=== PATIENT | male | born 1940 | race Caucasian/White ===

== ENCOUNTER 2020-08-13 12:03 | Outpatient (REF) | payer MEDICARE, OTHER, SELFPAY ==
[2020-08-13 12:44] LABS: HCT 43.9 % (40.0-50.0); MCH 32.4 pg (27.0-33.0); MCHC 34.2 % (32.0-36.0); MCV 94.8 fL (80-95); MPV 9.3 fL (8.0-11.0); Platelet Count 203 10^3/uL (130-400); RBC 4.63 10^6/uL (4.36-5.78); RDW 12.9 % (11.8-14.1); RDW-SD 44.8 fL
[2020-08-13 14:19] LABS: ALT 30 U/L (16-63); AST 15 U/L (15-37); Albumin 3.9 g/dL (3.4-5.0); Alkaline Phosphatase 54 U/L (46-116); Anion Gap 8.2 mmol/L (3-11); BUN 18 mg/dL (7-18); Bilirubin, Total 0.8 mg/dL (0.2-1.0); CO2 29.8 mmol/L (21.0-32.0); CREATININE 1.2 mg/dL (0.70-1.30); Chloride 105 mmol/L (98-107); Estimated GFR 57.96 (mL/min/1.73m2); Glucose 83 mg/dL (74-106); Potassium 4.9 mmol/L (3.5-5.1); Sodium 143 mmol/L (136-145); Total Protein 6.8 g/dL (6.4-8.2)
== END 2020-08-13 12:04 | disposition home or self-care (01) ==
LOC: NCHCN 12:03
PROVIDERS: PCP Family Medicine; Visit Provider Family Medicine
DX: K21.9 Gastro-esophageal reflux disease without esophagitis (principal)
CPT/HCPCS: 80053; 85027

== ENCOUNTER 2020-11-07 16:57 | Outpatient (REF) | payer MEDICARE, OTHER, SELFPAY ==
[2020-11-08 03:05] LABS: COVID-19 RT-PCR UVMMC Result Negative (Negative)
== END 2020-11-07 16:58 | disposition home or self-care (01) ==
LOC: NCHCN 16:57
PROVIDERS: PCP Family Medicine; Visit Provider Family Medicine
DX: Z20.822 Contact with and (suspected) exposure to COVID-19 (principal); J02.9 Acute pharyngitis, unspecified
CPT/HCPCS: U0003; U0005

== ENCOUNTER 2020-11-21 14:39 | Outpatient (CLI) | payer MEDICARE, OTHER, SELFPAY ==
--- NOTE | 2020-11-21 | DI.RAD_ITS ---
Exam(s) XR CHEST 2V PA LATERAL EXAM: XR CHEST 2V PA LATERAL CLINICAL HISTORY: BRONCHITIS ACUTE J20.9 TECHNIQUE: 2D digital imaging was performed. COMPARISON: No exams were available for comparison FINDINGS: MEDIASTINUM: Normal. HEART: Normal. PULMONARY VASCULATURE: Normal. LUNGS: There is an opacity in the peripheral aspect of the right mid lung. PLEURAL SPACE: No pleural effusion or pneumothorax. BONE:Within normal limits for the patient's age. OTHER FINDINGS:Normal. IMPRESSION: Opacity in the right mid lung peripherally. This may represent atelectasis or pneumonia. A follow-u p chest x-ray is recommended to document resolution of the infiltrate. DATA REPOSITORY: RADIATION DOSE DELIVERED:
== END 2020-11-21 14:59 ==
PROVIDERS: PCP Family Medicine; Visit Provider Family Medicine
DX: J20.9 Acute bronchitis, unspecified (principal); R91.8 Other nonspecific abnormal finding of lung field
CPT/HCPCS: 71046

== ENCOUNTER 2020-12-04 15:10 | Outpatient (REF) | payer MEDICARE, OTHER, SELFPAY ==
[2020-12-05 14:15] LABS: COVID-19 RT-PCR UVMMC Result Negative (Negative)
== END 2020-12-04 15:11 | disposition home or self-care (01) ==
LOC: NCHCN 15:10
PROVIDERS: PCP Family Medicine; Visit Provider Family Medicine
DX: Z20.822 Contact with and (suspected) exposure to COVID-19 (principal)
CPT/HCPCS: U0003; U0005

== ENCOUNTER 2021-01-01 01:03 | Outpatient (CLI) | payer MEDICARE, OTHER, SELFPAY ==
--- NOTE | 2021-01-01 | DI.RAD_ITS ---
Exam(s) XR CHEST 2V PA LATERAL EXAM: XR CHEST 2V PA LATERAL CLINICAL HISTORY: COMMUNITY ACQUIRED PNEUMONIA,J18.9. TECHNIQUE: 2D digital imaging was performed. COMPARISON: CR XR CHEST 2V PA LATERAL from 11/21/2020 FINDINGS: Heart size is normal. The mediastinum is not widened. Left lung remains clear. Previously described infiltrate peripherally in the right lung has almost completely resolved. There are no pleural effusions. No pneumothorax. IMPRESSION: Radiographic improvement in the right lung infiltrate seen on 11/21/2020 chest x-ray. No pleural eff usions. Recommend repeat chest x-ray in 3 months. DATA REPOSITORY: RADIATION DOSE DELIVERED:
== END 2021-01-01 01:23 ==
PROVIDERS: PCP Family Medicine; Visit Provider Family Medicine
DX: J18.9 Pneumonia, unspecified organism (principal)
CPT/HCPCS: 71046

== ENCOUNTER 2021-04-05 02:50 | Outpatient (CLI) | payer MEDICARE, OTHER, SELFPAY ==
--- NOTE | 2021-04-05 09:07 | DI.RAD_ITS ---
Exam(s) XR CHEST 2V PA LATERAL EXAM: XR CHEST 2V PA LATERAL CLINICAL HISTORY: 3 MONTH F/U COMMUNITY ACQUIRED PNEUMONIA,J18.9. TECHNIQUE: 2D digital imaging was performed. COMPARISON: CR XR CHEST 2V PA LATERAL from 11/21/2020 CR XR CHEST 2V PA LATERAL from 01/01/2021 FINDINGS: Heart size is normal. The mediastinum is not widened. Lungs are clear. No infiltrates nor pleural effusions. There has been no recurrence of the infiltrate which was evident in the right lung on 11/21/2020 IMPRESSION: No acute pulmonary findings. DATA REPOSITORY: RADIATION DOSE DELIVERED:
== END 2021-04-05 03:10 ==
PROVIDERS: PCP Family Medicine; Visit Provider Family Medicine
DX: J18.9 Pneumonia, unspecified organism (principal)
CPT/HCPCS: 71046

== ENCOUNTER 2021-08-12 13:29 | Outpatient (REF) | payer MEDICARE, OTHER, SELFPAY ==
[2021-08-12 14:53] LABS: Bilirubin Negative (Negative); Blood Small (Negative); Clarity Cloudy (Clear); Glucose Negative (Negative); Ketones Negative (Negative); Leukocyte Esterase Moderate (Negative); Nitrite Negative (Negative); Urobilinogen 0.2 EU/dL (Up TO 0.2)
[2021-08-12 15:03] LABS: Bacteria Few HPF (Negative); C & S Indicated? C&S Done As Ordered; Casts 0-2 Hyaline LPF (Negative); Crystals Negative HPF (Negative); Epithelial Cells Rare HPF (Negative); Mucus Trace (Negative); RBC 0-2 HPF (0-2); WBC >50 HPF (0-5)
== END 2021-08-12 13:30 | disposition home or self-care (01) ==
LOC: NCHCN 13:29
PROVIDERS: PCP Family Medicine; Visit Provider Family Medicine
DX: N39.0 Urinary tract infection, site not specified (principal)
CPT/HCPCS: 87077; 81003; 81015; 87086; 87186

== ENCOUNTER 2021-09-11 18:01 | Outpatient (REF) | payer MEDICARE, OTHER, SELFPAY ==
[2021-09-11 20:43] LABS: HCT 42.3 % (40.0-50.0); HGB 14.6 g/dL (13.5-17.5); MCH 32.8 pg (27.0-33.0); MCHC 34.5 % (32.0-36.0); MCV 95 fL (80-95); MPV 9.4 fL (8.0-11.0); Platelet Count 214 10^3/uL (130-400); RBC 4.45 10^6/uL (4.36-5.78); RDW 12.7 % (11.8-14.1); WBC 6.02 10^3/uL (4.4-10.8)
[2021-09-11 21:01] LABS: Anion Gap 7.8 mmol/L (3-11); BUN 17 mg/dL (7-18); CO2 29.2 mmol/L (21.0-32.0); Calcium 9.3 mg/dL (8.5-10.1); Chloride 100 mmol/L (98-107); Glucose 87 mg/dL (74-106); Potassium 4.3 mmol/L (3.5-5.1); Sodium 137 mmol/L (136-145)
== END 2021-09-11 18:02 | disposition home or self-care (01) ==
LOC: NCHCN 18:01
PROVIDERS: PCP Family Medicine; Visit Provider Family Medicine
DX: K21.9 Gastro-esophageal reflux disease without esophagitis (principal)
CPT/HCPCS: 80048; 85027

== ENCOUNTER 2022-04-23 12:03 | Outpatient (REF) | payer MEDICARE, OTHER, SELFPAY ==
--- NOTE | 2022-04-23 15:45 | SKI_PTH ---
PATIENT: Bowen Munguia LOC: [facility] U#:[id number] AGE/SX: 81/M ROOM: RE04/23/[address]: Ryan Rivera : 1940 BED: DIS: 04/23/2022 SPEC #: [id number] RECD: 04/24/22 12:18 STATUS: MITCHELL ORNELAS #: [id number] LAWRENCE: 04/23/22 15:[address]: Ryan Rivera DEPT: Surgical Specimen RECD BY: Brigitte Schuster Tissues: 1 - SKIN BIOPSY(SHAVE/PUNCH) Procedures: SKIN LEVEL 4 Comments: [id number]
== END 2022-04-23 12:04 | disposition home or self-care (01) ==
LOC: NCHCN 12:03
PROVIDERS: PCP Family Medicine; Visit Provider Family Medicine
DX: L85.9 Epidermal thickening, unspecified (principal)
CPT/HCPCS: 88305

== ENCOUNTER 2022-08-27 12:31 | Outpatient (REF) | payer MEDICARE, OTHER, SELFPAY ==
[2022-08-27 15:06] LABS: HCT 41.9 % (40.0-50.0); HGB 14.2 g/dL (13.5-17.5); MCH 32.5 pg (27.0-33.0); MCHC 33.9 % (32.0-36.0); MCV 96 fL (80-95); MPV 9.4 fL (8.0-11.0); Platelet Count 212 10^3/uL (130-400); RBC 4.37 10^6/uL (4.36-5.78); RDW 12.9 % (11.8-14.1); RDW-SD 45.9 fL; WBC 5.23 10^3/uL (4.4-10.8)
[2022-08-27 15:28] LABS: ALT 27 U/L (16-63); AST 22 U/L (15-37); Albumin 3.8 g/dL (3.4-5.0); Alkaline Phosphatase 54 U/L (46-116); Anion Gap 4.4 mmol/L (3-11); BUN 22 mg/dL (7-18); Bilirubin, Total 0.8 mg/dL (0.2-1.0); CO2 31.6 mmol/L (21.0-32.0); CREATININE 1.2 mg/dL (0.70-1.30); Calcium 9.2 mg/dL (8.5-10.1); Chloride 105 mmol/L (98-107); Estimated GFR 59.63 (mL/min/1.73m2); Glucose 85 mg/dL (74-106); Potassium 4.1 mmol/L (3.5-5.1); Sodium 141 mmol/L (136-145); Total Protein 7.1 g/dL (6.4-8.2)
== END 2022-08-27 12:32 | disposition home or self-care (01) ==
LOC: NCHCN 12:31
PROVIDERS: PCP Family Medicine; Visit Provider Family Medicine
DX: K21.9 Gastro-esophageal reflux disease without esophagitis (principal); G57.02 Lesion of sciatic nerve, left lower limb; C44.320 Squamous cell carcinoma of skin of unspecified parts of face
CPT/HCPCS: 80053; 85027

== ENCOUNTER 2022-12-24 12:27 | Outpatient (REF) | payer MEDICARE, OTHER, SELFPAY ==
[2022-12-24 15:35] LABS: Abs Immature Grans 0.01 10^3/uL (0.0-0.06); Absolute Basophil Count 0.05 10^3/uL (0.0-0.2); Absolute Eosinophil Count 0.14 10^3/uL (0.0-0.7); Absolute Lymphocyte Count 1.56 10^3/uL (1.2-3.4); Absolute Monocyte Count 0.53 10^3/uL (0.1-0.8); Absolute Neutrophil Count 2.79 10^3/uL (1.2-6.7); Eosinophils % 2.8; HGB 13.8 g/dL (13.5-17.5); Immature Grans % 0.2; Lymphocytes % 30.7; MCH 32.9 pg (27.0-33.0); MCHC 34.5 % (32.0-36.0); MCV 96 fL (80-95); MPV 9.3 fL (8.0-11.0); Monocytes % 10.4; Neutrophils % 54.9; Platelet Count 216 10^3/uL (130-400); RBC 4.19 10^6/uL (4.36-5.78); RDW 12.5 % (11.8-14.1); RDW-SD 43.2 fL; WBC 5.08 10^3/uL (4.4-10.8)
[2022-12-24 16:05] LABS: ALT 28 U/L (16-63); AST 19 U/L (15-37); Albumin 3.7 g/dL (3.4-5.0); Alkaline Phosphatase 63 U/L (46-116); Anion Gap 4.9 mmol/L (3-11); BUN 24 mg/dL (7-18); Bilirubin, Total 0.6 mg/dL (0.2-1.0); C-Reactive Protein 0.25 mg/dL (0.0-0.3); CO2 31.1 mmol/L (21.0-32.0); CREATININE 1.1 mg/dL (0.70-1.30); Calcium 9.3 mg/dL (8.5-10.1); Chloride 106 mmol/L (98-107); Estimated GFR 66.19 (mL/min/1.73m2); Glucose 79 mg/dL (74-106); Potassium 4.2 mmol/L (3.5-5.1); Sodium 142 mmol/L (136-145); TSH (W/Ref FT4) 1.36 uIU/mL (0.36-3.74); Total Protein 6.6 g/dL (6.4-8.2)
== END 2022-12-24 12:28 | disposition home or self-care (01) ==
LOC: NCHCN 12:27
PROVIDERS: PCP Family Medicine; Visit Provider Family Medicine
DX: U09.9 Post COVID-19 condition, unspecified (principal); R53.83 Other fatigue
CPT/HCPCS: 80053; 84443; 85025; 86140

== ENCOUNTER 2023-01-21 14:17 | Outpatient (CLI) | payer MEDICARE, OTHER, SELFPAY ==
--- NOTE | 2023-01-21 13:00 | DI.RAD_ITS ---
Exam(s) XR SHOULDER LT COMPLETE 2+V EXAM: XR SHOULDER LT COMPLETE 2+V CLINICAL HISTORY: LEFT SHOULDER PAIN. TECHNIQUE: 2D digital imaging was performed. Three views. COMPARISON: CR XR CHEST 2V PA LATERAL from 04/05/2021 FINDINGS: BONES: No acute fracture is present. No bony destructive lesion is seen. Spurring at the lesser tube rosity. JOINTS: No dislocation present. Minimal spurring at the glenoid. Glenohumeral joint space is mainta ined. Minimal spurring at the AC joint. SOFT TISSUE: Normal. IMPRESSION: mild degenerative changes. DATA REPOSITORY: RADIATION DOSE DELIVERED:
== END 2023-01-21 14:18 | disposition home or self-care (01) ==
LOC: DIORS 14:17
PROVIDERS: PCP Family Medicine; Referring Provider Family Medicine; Visit Provider Student in an Organized Health Care Education/Training Program
DX: M25.512 Pain in left shoulder (principal); M75.102 Unspecified rotator cuff tear or rupture of left shoulder, not specified as traumatic
CPT/HCPCS: 20610; 99203; 73030; J1030

== ENCOUNTER 2023-03-25 20:58 | Outpatient (REF) | payer MEDICARE, OTHER, SELFPAY ==
--- OUTSIDE RECORDS SUMMARY | 2023-03-25 21:02 | XMS_ITS | Continuity of Care Document ---
Author Name Unknown Organization [facility] Ambulatory Clinics Address [address] [place] [address] Encounter [facility] NBR [id number] Date(s): 10/28/22 - 10/28/22 [facility] Ambulatory Clinics [address] [place], [place] [address] [[email or web address] Discharge Disposition: Home Assessment and Plan Future Appointments Patient Care team information Care Team Related Persons Name: SPENCER DOYLE Address: Home [address] [place] [address] [facility] Address: Mailing [address] [place], [place] [id number]
--- OUTSIDE RECORDS SUMMARY | 2023-03-25 21:02 | XMS_ITS | Continuity of Care Document ---
Author Name Unknown Organization [facility] Ambulatory Clinics Address [address] [place] [address] Care Team Providers Care Inspector Open Die Name Role Phone Unavailable, Physician Primary Care Physician Un available Encounter [facility] NBR [id number] Date(s): 11/07/22 - 11/07/22 [facility] Ambulatory Clinics [address] [place], [place] [address] Encounter Diagnosis Neoplasm of skin(Discharge Diagnosis) - 11/06/22 Skin lesion(Discharge Diagnosis) - 11/06/22 AK (actinic keratosis)(Discharge Diagnosis) - 11/07/22 Discharge Disposition: Home or Self Care Attending Physician: Rakesh Cai DO Referring Physician: Rakesh Cai DO Allergies, Adverse Reactions, Alerts No Known Medication Allergies Assessment and Plan Future Appointments Medications betamethasone 0 Refill(s) Start Date: 11/07/22 Status: Ordered Efudex 5% topical cream 1 kaitlynn, Topical, BID, # 40 g, 1 Refill(s), Pharmacy: [facility] #[id number] Start Date: 11/07/22 Stop Date: 12/19/22 Status: Ordered pantoprazole 40 mg oral delayed release tablet 40 mg = 1 tab, Oral, Daily, # 30 tab, 0 Refill(s) Start Date: 11/07/22 Status: Ordered triamcinolone 0.025% topical cream 1 kaitlynn, Topical, BID, # 15 g, 0 Refill(s) Start Date: 11/07/22 Stop Date: 11/21/22 Status: Ordered Problem List Condition Confirmation Course Effective Dates Status Health St [facility] Informant Acid reflux Confirmed Active Neoplasm of skin Confirmed Active Skin lesion Confirmed Active Physician Outpatient Note * Nayeli Silveira: MODIFY, MODIFY, MODIFY, MODIFY Rakesh Cai DO: PERFORM, MODIFY Rakesh Cai, DO: MODIFY Event Display: Office Clinic Note Physician Authored Date: [id number] GALLITO DOYLE :1940 Age:82 years Sex:Male Visit Date:11/07/2022 Chief Complaint new patient skin check History of Present Illness New patient in the office today for a skin check. No referral on file. Patient did have??a felt cutter in [place] and he used to have things frozen off. Patient was out in the sun often, workingin [employer] as a child with no shirt on. 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 Review of Systems Fatigue?? Negative.?? Fever?? Negative.?? Weight Loss?? Negative.?? Snoring?? Negative.?? Hoarseness?? Negative.?? Glaucoma?? Negative.?? Double Vision?? Negative.?? Other eye problems?? Negative.?? Loss of taste?? Negative.?? Loss of smell?? Negative.?? Sinus trouble?? Negative.?? Difficulty swallowing?? Negative.?? High blood pressure?? Negative.?? Heart failure?? Negative.?? Chest pain/Angina?? Negative.?? Heart Attack?? Negative.?? Ankle/Foot swelling?? Negative.?? Shortness of breath?? Negative.?? High cholesterol?? Negative.?? Cough?? Negative.?? Diabetes?? Negative.?? Ulcer?? Negative.?? Blood in Stool ?? Negative.?? Colitis?? Negative.?? Prostate Problems?? Negative.?? Kidney Stones? ? Negative.?? Hepatitis?? Negative.?? Liver trouble?? Negative.?? Gall bladder problems?? Negative.?? Kidney infection?? Negative.?? Blood in urine?? Negative.?? Bladder infection?? Negative.?? Arthritis?? Negative.?? Fibromyalgia?? Negative.?? Bone disease?? Negative.?? Joint disease?? Negative.??Back problems?? Negative.?? Breast (lump/tumor)?? Negative.?? Rashes?? Negative.?? Eczema?? Negative.?? Headaches?? Negative.?? Meningitis?? Negative.?? Thyroid Problems?? Negative.?? Pituitary Problems?? Negative.?? Bleeding Disorder?? Negative.?? Anemia?? Negative.?? Lymphoma?? Negative.?? Venereal Disease?? Negative.?? AIDS/HIV?? Negative.?? Cancer?? Negative.?? Blood transfusion?? Negative.??Seizures?? Negative.?? Loss of consciousness?? Negative.?? Head Injury/concussion?? Negative.?? Multiple Sclerosis?? Negative.?? Nervous disorder?? Negative.?? Anxiety?? Negative.?? Depression?? Negative.?? Frequent infection?? Negative.?? Environmental allergies?? Negative.?? Hay Fever?? Negative.?? Reflux?Positive?? Sleep apnea?? Negative.?? Physical Exam GENERAL APPEARANCE:??The patient is awake, alert, and oriented and in no acute distress, Appears nutritionally sound, Healthy in appearance, Voice is strong, with no stridor or stertor, Handling secretions without difficulty.?PSYCH:??affect normal, good eye contact, oriented to person, oriented to place, oriented to time.?NEURO:??CN's II-XII grossly intact, Gait is normal, The patient has endpoint nystagmus only.?HEENT:??The patient is normocephalic with a normal facies with cranial nerves 2 through 12 bilaterally equal and intact. Pupils are equal and reactive to light with extraocular movements bilaterally equal and intact. There is no proptosis or enophthalmos. ?NECK:??There is no palpable lymphadenopathy. .?SKIN:??Atypical lesions right trapezius, right upper back, right flank, right anterior shoulder. Widespread AK's (photos taken)?MUSCULOSKELETAL:??normal gait and station.?EXTREMITIES:??grossly equal with full range of motion x 4.? Procedure Surgery Consent??There was a full discussion of all treatment options including conservative management, second opinion and surgical intervention. The patient and or family has opted to proceed with surgical intervention. We have discussed risks and complications as it relates to the procedure and postoperative period, including but not limited to those listed on the consent. All of their questions were answered, consent was reviewed and signed. There is no history of any bleeding disorders or anesthesia complications. We will proceed..?PFP Shave Excision ? Location:??Right trap, right upper back, right flank, right anterior shoulder ? Size:??Right trap, right upper back,??right flank <0.5cm, right anterior shoulder 0.6-1cm ?Prep:??Betadine used to prep site.?Consent:??The procedure was discussed, risks and complications explained and consent obtained.?Procedure:??Shave excision was performed, hemostasis was achieved and no complications.? Discharge Instructions:??Keep area moist with ointment and clean, follow up in seven days for pathology.?? Assessment/Plan 1.??Neoplasm of skin??D49.2 2.??Skin lesion??L98.9 He has multiple lesions that are atypical and non healing. We decided to proceed with biopsies of them all. All questions were answered and patient tolerated procedure well. 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 Patient was given Efudex instructions. Follow Up Instructions calling path results,??1 year skin check Problem List/Past Medical History Ongoing Acid reflux Neoplasm of skin Skin lesion Historical No qualifying data Medications betamethasone pantoprazole 40 mg oral delayed release tablet, 40 mg= 1 tab, Oral, Daily triamcinolone 0.025% topical cream, 1 kaitlynn, Topical, BID Allergies No Known Medication Allergies Social History Former, 1967 quit Electronically Signed on 11/07/22 03:22 PM Rakesh Cai, Patient Care team information Care Team Personnel Name: Unavailable, Physician Position: No Access Member Role: Primary Care Physician Care Team Related Persons Name: SPENCER DOYLE Address: [address] [address] [facility] Address: Mailing [address] [phone]
== END 2023-03-25 20:59 | disposition home or self-care (01) ==
LOC: NCHCN 20:58
PROVIDERS: PCP Family Medicine; Visit Provider Family Medicine
DX: N39.0 Urinary tract infection, site not specified (principal); R82.89 Other abnormal findings on cytological and histological examination of urine
CPT/HCPCS: 87077; 87086; 87186

== ENCOUNTER 2023-05-04 15:04 | Outpatient (REF) | payer MEDICARE, OTHER, SELFPAY | END 2023-05-04 15:05 | disposition home or self-care (01) | LOC: NCHCN 15:04 | PROVIDERS: PCP Family Medicine; Visit Provider Family Medicine | DX: N39.0 Urinary tract infection, site not specified (principal) | CPT/HCPCS: 87077; 87086; 87186 ==

== ENCOUNTER 2023-05-05 10:38 | Emergency (ER) | payer MEDICARE, OTHER, SELFPAY ==
[2023-05-05 10:44] VITALS: BP 119/59; PULSE 74; RESP 18; TEMP 37.2; O2SAT 96
--- NOTE | 2023-05-05 11:45 | DI.RAD_ITS ---
Exam(s) XR ELBOW RT COMPLETE EXAM: XR ELBOW RT COMPLETE CLINICAL HISTORY: right elbow pain. TECHNIQUE: 2D digital imaging was performed of the left elbow. Three images were obtained. AP, lat eral and oblique views were obtained. COMPARISON: No exams were available for comparison FINDINGS: BONES: No acute fracture is present. No bony destructive lesion is seen. JOINTS: The elbow is normally aligned. No joint effusion is seen. There is a 3 mm density projected i n the mid joint which may represent a loose body. There is a well corticated density adjacent to the lateral epicondyle which is chronic. SOFT TISSUE: Normal. IMPRESSION: 1. No acute fracture or dislocation. 2. Findings suggestive of a loose body within the joint space. DATA REPOSITORY: RADIATION DOSE DELIVERED:
[2023-05-05 13:21] VITALS: BP 133/72; PULSE 66; RESP 18; TEMP 36.3; O2SAT 97
--- NOTE | 2023-05-06 08:37 | ED.GENADUL_ITS ---
HPI General Date/Time Provider Initiated Documentation: 05/05/23 11:46 . HPI Narrative: This 82-year-old gentleman presents with right elbow pain. He states he was bowling and was throwing the ball when he felt a popping sensation and a crack in his right elbow. Denies any additional injuries. States he has pain now with extension and adduction and internal rotation. Related Data Home Medications Medication Instructions Recorded Confirmed amoxicillin 500 mg capsule 2,000 mg PO DAILY PRN 09/03/22 05/05/23 ascorbic acid (vitamin C) 1,000 mg 1 g PO Q6H 09/03/22 05/05/23 capsule calcium carbonate 600 mg calcium 600 mg PO DAILY 09/03/22 05/05/23 (1,500 mg) tablet cholecalciferol (vitamin D3) 25 25 mcg PO DAILY 09/03/22 05/05/23 mcg (1,000 unit) capsule fexofenadine 60 mg tablet 60 mg PO BID 09/03/22 01/21/23 ketoconazole 2 % topical cream 1 applic topical DAILY 09/03/22 05/05/23 multivitamin 1 tab PO DAILY 09/03/22 05/05/23 pantoprazole 40 mg tablet,delayed 40 mg PO DAILY 09/03/22 05/05/23 release pimecrolimus 1 % topical cream 1 applic topical BID 09/03/22 05/05/23 vitamin B complex (B 1 tab PO DAILY 09/03/22 05/05/23 Complex-Vitamin B12 tablet) vitamin E (dl, acetate) 90 mg (200 90 mg PO DAILY 09/03/22 05/05/23 unit) capsule Allergies Allergy/AdvReac Type Severity Reaction Status Date / Time seasonal Allergy Agitation Uncoded 05/05/23 10:52 General Stated Complaint: Orthopedic MAINOR: 3 Course Vital Signs Vital signs: Vital Signs Temperature 37.2 C 05/05/23 10:44 Pulse 74 05/05/23 10:44 Respiratory Rate 18 05/05/23 10:44 Blood Pressure 119/59 L 05/05/23 10:44 Pulse Oximetry 96 05/05/23 10:44 Temperature 36.3 C L 05/05/23 13:21 Temperature Source Skin 05/05/23 10:44 Pulse 66 05/05/23 13:21 Respiratory Rate 18 05/05/23 13:21 Respiratory Effort Normal 05/05/23 10:50 Blood Pressure 133/72 05/05/23 13:21 Blood Pressure Position Sitting 05/05/23 10:44 Pulse Oximetry 97 05/05/23 13:21 Oxygen Delivery Method Room Air 05/05/23 10:44 Oxygen Flow Rate 0 05/05/23 10:44 Pain Level 3 05/05/23 13:21 Medical Decision Making This 82-year-old male presents with report of right elbow pain after an injury while bowling Elbow x-ray without evidence of acute abnormality No evidence of acute fracture per radiology Patient has a sling at home, will continue to wear for comfort frozen shoulder precautions reviewed pt referral supplied Quality:SDOH Health Related Social Needs: No Data to Display PFSH All Active Problems (Updated 05/05/23 @ 13:10 by WEN [place]) Tendinitis (Acute) Left rotator cuff tear (Acute) GERD (gastroesophageal reflux disease) (Chronic) Medical History (Updated 05/05/23 @ 13:10 by WEN [place]) Seborrheic dermatitis Seasonal allergies Psoriasis Ceruminosis Loss of smell Surgical History (Updated 01/21/23 @ 13:12 by Meli Prescott RN) 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 Social History (Updated 09/03/22 @ 09:55 by Latia Chao) Smoking/Tobacco Use Status: Former Tobacco Use Smoking risk assessment performed?: Yes Alcohol Intake: current Alcohol Intake frequency: holidays/special occasions only Drug use: Never Substance use type: does not use Current gender identity: male Do you feel safe at home: Yes Do you feel safe in your relationship?: Yes Discharge Plan Disposition Patient Disposition: Home Condition: Stable Discharge Details Clinical Impression: Tendinitis Primary Care Provider: Ryan Rivera ED Provider: Brigitte Cruz Home Meds and New Rx's Prescriptions: Continued pantoprazole 40 mg tablet,delayed release (DR/EC) 40 mg PO DAILY pimecrolimus 1 % cream 1 applic topical BID ketoconazole 2 % cream 1 applic topical DAILY vitamin E (dl, acetate) 90 mg (200 unit) capsule 90 mg PO DAILY amoxicillin 500 mg capsule 2,000 mg PO DAILY PRN Rx Instructions: one hour prior to dental work ascorbic acid (vitamin C) 1,000 mg capsule 1 g PO Q6H calcium carbonate 600 mg calcium (1,500 mg) tablet 600 mg PO DAILY cholecalciferol (vitamin D3) 25 mcg (1,000 unit) capsule 25 mcg PO DAILY vitamin B complex [B Complex-Vitamin B12] Tablet 1 tab PO DAILY multivitamin Tablet 1 tab PO DAILY fexofenadine 60 mg tablet 60 mg PO BID Discharge Instructions Instructions: Tendinitis (ED) Additional Instructions: Wear your sling during the day, continue to range her shoulder so it does not become stiff take tylenol as needed for pain follow-up with PT rest your elbow return earlier with new or worsening complaints Stand Alone Forms: Physical Therapy Referral Referrals: Ryan Rivera MD [Primary Care Provider] - Discharge Data Discharge Date/Time-TO BE ENTERED AT DEPARTURE: 05/05/23 13:39
== END 2023-05-05 13:39 | disposition home or self-care (01) ==
PROVIDERS: Emergency Provider Physician Assistant; PCP Family Medicine
DX: M25.521 Pain in right elbow (principal); M77.11 Lateral epicondylitis, right elbow; Y93.54 Activity, bowling
CPT/HCPCS: 99283; 73080

== ENCOUNTER 2023-05-20 08:40 | Emergency (ER) | payer MEDICARE, OTHER, SELFPAY ==
[2023-05-20 08:45] VITALS: BP 138/78; PULSE 71; RESP 16; TEMP 36.9; O2SAT 98
[2023-05-20 08:52] VITALS: BP 138/78; PULSE 71; RESP 16; TEMP 36.9; O2SAT 98
--- NOTE | 2023-05-20 09:09 | ED.GENADUL_ITS ---
Discharge Plan Disposition Patient Disposition: Home Condition: Stable Discharge Details Chief Complaint: Urinary Clinical Impression: History of recurrent urinary tract infection Primary Care Provider: Ryan Rivera ED Provider: Briseyda Isabel Home Meds and New Rx's Prescriptions: New sulfamethoxazole-trimethoprim [Bactrim DS] 800-160 mg tablet 1 tab PO BID Qty: 14 0RF Continued pantoprazole 40 mg tablet,delayed release (DR/EC) 40 mg PO DAILY pimecrolimus 1 % cream 1 applic topical BID ketoconazole 2 % cream 1 applic topical DAILY vitamin E (dl, acetate) 90 mg (200 unit) capsule 90 mg PO DAILY amoxicillin 500 mg capsule 2,000 mg PO DAILY PRN Rx Instructions: one hour prior to dental work ascorbic acid (vitamin C) 1,000 mg capsule 1 g PO Q6H calcium carbonate 600 mg calcium (1,500 mg) tablet 600 mg PO DAILY cholecalciferol (vitamin D3) 25 mcg (1,000 unit) capsule 25 mcg PO DAILY vitamin B complex [B Complex-Vitamin B12] Tablet 1 tab PO DAILY multivitamin Tablet 1 tab PO DAILY fexofenadine 60 mg tablet 60 mg PO BID Discharge Instructions Instructions: Urinary Tract Infection in Men (DC) Additional Instructions: continue to push fluids, drinking 6-8 glasses of water daily take antibiotics as prescribed even if you feel better Referrals: Radames Olson MD [ [facility] STAFF PHYSICIAN] - [facility] General Mode of arrival: ambulatory . Date/Time Provider Initiated Documentation: 05/20/23 08:54 . Limitations to Documentation: no limitations . Information obtained by: patient . HPI Narrative: Patient presents for evaluation of dysuria frequency urgency. There is been no fevers or signs of systemic infection. He was recently treated for urinary tract infection and completed a course of cephalexin with resolution of his symptoms. He did take a home urine test today and patient reports was positive for UTI. Denies nausea or vomiting. Denies symptoms of retention Related Data Home Medications Medication Instructions Recorded Confirmed amoxicillin 500 mg capsule 2,000 mg PO DAILY PRN 09/03/22 05/05/23 ascorbic acid (vitamin C) 1,000 mg 1 g PO Q6H 09/03/22 05/05/23 capsule calcium carbonate 600 mg calcium 600 mg PO DAILY 09/03/22 05/05/23 (1,500 mg) tablet cholecalciferol (vitamin D3) 25 25 mcg PO DAILY 09/03/22 05/05/23 mcg (1,000 unit) capsule fexofenadine 60 mg tablet 60 mg PO BID 09/03/22 01/21/23 ketoconazole 2 % topical cream 1 applic topical DAILY 09/03/22 05/05/23 multivitamin 1 tab PO DAILY 09/03/22 05/05/23 pantoprazole 40 mg tablet,delayed 40 mg PO DAILY 09/03/22 05/05/23 release pimecrolimus 1 % topical cream 1 applic topical BID 09/03/22 05/05/23 vitamin B complex (B 1 tab PO DAILY 09/03/22 05/05/23 Complex-Vitamin B12 tablet) vitamin E (dl, acetate) 90 mg (200 90 mg PO DAILY 09/03/22 05/05/23 unit) capsule sulfamethoxazole 800 1 tab PO BID #14 tabs 05/20/23 mg-trimethoprim 160 mg tablet (Bactrim DS) Previous Rx's Medication Instructions Recorded sulfamethoxazole 800 1 tab PO BID #14 tabs 05/20/23 mg-trimethoprim 160 mg tablet (Bactrim DS) Allergies Allergy/AdvReac Type Severity Reaction Status Date / Time seasonal Allergy Agitation Uncoded 05/05/23 10:52 General Stated Complaint: Urinary MAINOR: 4 Review of Systems All systems reviewed & are unremarkable except as noted in HPI and below Exam Const General: cooperative, healthy appearing (younger than stated age), comfortable and no acute distress Nutritional Appearance: thin Orientation: alert, awake and oriented x3 HENMT Head: normal to inspection, normocephalic and atraumatic Face and sinus: normal facial exam Mouth: oral mucosae normal Eyes General: appearance normal, both eyes and all related structures Resp Effort & Inspection: normal respiratory effort Cardio Rate: regular rate Rhythm: regular rhythm GI Inspection: normal to inspection Palpation: soft and nontender Skin General skin exam: no rashes or lesions noted Neuro General: patient alert, patient awake and patient oriented x3 Cognition: normal cognition Speech: speech normal Course Vital Signs Vital signs: Vital Signs Temperature 36.9 C 05/20/23 08:45 Pulse 71 05/20/23 08:45 Respiratory Rate 16 05/20/23 08:45 Blood Pressure 138/78 05/20/23 08:45 Pulse Oximetry 98 05/20/23 08:45 Temperature 36.9 C 05/20/23 08:52 Temperature Source Skin 05/20/23 08:52 Pulse 71 05/20/23 08:52 Respiratory Rate 16 05/20/23 08:52 Respiratory Effort Normal, Non-Labored 05/20/23 08:52 Blood Pressure 138/78 05/20/23 08:52 Blood Pressure Position Sitting 05/20/23 08:52 Pulse Oximetry 98 05/20/23 08:52 Oxygen Delivery Method Room Air 05/20/23 08:52 Oxygen Flow Rate 0 05/20/23 08:52 Pain Level 6 05/20/23 08:52 Medical Decision Making Patient presents with symptoms most consistent with recurrent urinary tract infection. Will obtain UA with post void bladder scan. His last urine culture grew Klebsiella pneumoniae which was sensitive to the cephalosporins for which he was treated with. Post void bladder scan shows no evidence of urinary retention. UA does show urinary tract infection will treat with Bactrim based on previous urine culture changing drug class as his previous infection was just 1 month ago Medical Records Medical records reviewed: Yes I reviewed the patient's medical records. Lab Data Lab results reviewed: Yes I reviewed the patient's lab results. 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
[2023-05-20 09:43] LABS: Bilirubin Negative (Negative); Blood Small (Negative); Clarity Clear (Clear); Glucose Negative (Negative); Ketones Negative (Negative); Leukocyte Esterase Moderate (Negative); Nitrite Negative (Negative); Urobilinogen 0.2 mg/dL (Up to 0.2)
[2023-05-20 09:56] VITALS: BP 124/74; PULSE 62; RESP 18; TEMP 36.8; O2SAT 96
--- NOTE | 2023-05-20 09:58 | NUR.NOTE ---
report received and care assumed :
[2023-05-20 10:00] LABS: Bacteria Rare HPF (Negative); C & S Indicated? Yes; Casts Negative LPF (Negative); Crystals Negative HPF (Negative); Mucus Negative (Negative); Other Cells Rare Yeast (Negative); WBC >50 HPF (0-5)
== END 2023-05-20 12:17 | disposition home or self-care (01) ==
PROVIDERS: Emergency Provider Nurse Practitioner Acute Care; PCP Family Medicine
DX: N39.0 Urinary tract infection, site not specified (principal); Z87.891 Personal history of nicotine dependence
CPT/HCPCS: 87077; 99283; 81003; 81015; 87086; 87186

== ENCOUNTER 2023-08-11 11:24 | Emergency (ER) | payer MEDICARE, OTHER, SELFPAY ==
[2023-08-11 11:27] VITALS: BP 147/53; PULSE 84; RESP 15; TEMP 37.4; O2SAT 97
--- NOTE | 2023-08-11 11:43 | ED.GENADUL_ITS ---
Discharge Plan Disposition Patient Disposition: Home Condition: Stable Discharge Details Clinical Impression: Sciatica of left side Primary Care Provider: Ryan Rivera ED Provider: Wing Florian Home Meds and New Rx's Prescriptions: New methocarbamol 750 mg tablet 750 mg PO QID 10 Days Qty: 40 0RF prednisone 20 mg tablet 40 mg PO DAILY 5 Days Qty: 10 0RF lidocaine 5 % adhesive patch,medicated 1 patch topical DAILY Qty: 15 0RF Rx Instructions: leave on most painful area for up to 12 hrs diclofenac sodium 1 % gel 2 g topical QID Qty: 100 0RF Rx Instructions: apply to single elbow, wrist or hand; for hand includes palm/fingers/back of hand Continued pantoprazole 40 mg tablet,delayed release (DR/EC) 40 mg PO DAILY pimecrolimus 1 % cream 1 applic topical BID ketoconazole 2 % cream 1 applic topical DAILY vitamin E (dl, acetate) 90 mg (200 unit) capsule 90 mg PO DAILY ascorbic acid (vitamin C) 1,000 mg capsule 1 g PO Q6H calcium carbonate 600 mg calcium (1,500 mg) tablet 600 mg PO DAILY cholecalciferol (vitamin D3) 25 mcg (1,000 unit) capsule 25 mcg PO DAILY vitamin B complex [B Complex-Vitamin B12] Tablet 1 tab PO DAILY multivitamin Tablet 1 tab PO DAILY fexofenadine 60 mg tablet 60 mg PO BID sulfamethoxazole-trimethoprim [Bactrim DS] 800-160 mg tablet 1 tab PO BID Qty: 14 0RF Discharge Instructions Instructions: Prednisone (By mouth), Methocarbamol (By mouth), Diclofenac (On the skin), Lidocaine Patch (On the skin), Sciatica (ED) Additional Instructions: You were seen in the emergency department for your left-sided sciatica pain. You have no emergent signs of spinal cord or column injury like groin numbness, difficulty urinating or loss of bowel without noticing. You need to try an aggressive regimen of several medicines combined daily for at minimum 1 to 2 weeks to take care of this issue in addition to making physical therapy appointments to help with sciatica symptoms. Please take a 650 mg Tylenol every 6 hours, nursing home in between Tylenol dosing stick 400 mg of ibuprofen also every 6 hours. Take the prescribed muscle relaxer methocarbamol as prescribed, use a topical lidocaine patch on the area of pain for 12 hours each day, take the prescribed prednisone which will further anti-inflammatory effects in the central nervous system as directed for 5 days. When the lidocaine patch is not applied you can use the topical diclofenac gel for topical anti-inflammatory effects to the area. Please look up gentle stretching exercises to perform for sciatica at home, make physical therapy visits based on my referral. Please return for any signs of spinal cord or column injury, complete numbness to either leg, ascending symmetrical numbness of the legs, numbness in the groin or underwear area, urinary retention or loss of bowel without noticing. Stand Alone Forms: Physical Therapy Referral Referrals: Ryan Rivera MD [Primary Care Provider] - Discharge Data Discharge Date/Time-TO BE ENTERED AT DEPARTURE: 08/11/23 12:25 HPI General Date/Time Provider Initiated Documentation: 08/11/23 11:35 . HPI Narrative: 83 year-old male presents to ED today by POV/ambulating with a chief complaint of L buttock/SI pain, radiating down the L leg with onset noted a few days prior, worsening. Quality described as pain in the L buttock, shooting pains down L lateral thigh, no radiation to urinary retention, bowel incontinence, groin numbness, numbness or ROM deficits in the lower extremities. Severity is described as severe. Palliating factors include attempted OTC analgesics without relief. Provoking factors include nothing specific. Events leading up to the incident/Associated Symptoms: Patient has history of sciatica, never this bad. Patient not anticoagulated. Related Data Home Medications Medication Instructions Recorded Confirmed ascorbic acid (vitamin C) 1,000 mg 1 g PO Q6H 09/03/22 08/11/23 capsule calcium carbonate 600 mg PO DAILY 09/03/22 08/11/23 cholecalciferol (vitamin D3) 25 25 mcg PO DAILY 09/03/22 08/11/23 mcg (1,000 unit) capsule fexofenadine 60 mg tablet 60 mg PO BID 09/03/22 08/11/23 ketoconazole 2 % topical cream 1 applic topical DAILY 09/03/22 08/11/23 multivitamin 1 tab PO DAILY 09/03/22 05/05/23 pantoprazole 40 mg tablet,delayed 40 mg PO DAILY 09/03/22 05/05/23 release pimecrolimus 1 % topical cream 1 applic topical BID 09/03/22 05/05/23 vitamin B complex (B 1 tab PO DAILY 09/03/22 05/05/23 Complex-Vitamin B12 tablet) vitamin E (dl, acetate) 90 mg (200 90 mg PO DAILY 09/03/22 05/05/23 unit) capsule sulfamethoxazole 800 1 tab PO BID #14 tabs 05/20/23 mg-trimethoprim 160 mg tablet (Bactrim DS) diclofenac sodium 1 % topical gel 2 g topical QID acute pain #100 08/11/23 grams lidocaine 5 % topical patch 1 patch topical DAILY back pain 08/11/23 #15 ea methocarbamol 750 mg tablet 750 mg PO QID back spasm 10 days 08/11/23 #40 tabs prednisone 20 mg tablet 40 mg (2 x 20 mg) PO DAILY 08/11/23 sciatica 5 days #10 tabs Previous Rx's Medication Instructions Recorded sulfamethoxazole 800 1 tab PO BID #14 tabs 05/20/23 mg-trimethoprim 160 mg tablet (Bactrim DS) diclofenac sodium 1 % topical gel 2 g topical QID acute pain #100 08/11/23 grams lidocaine 5 % topical patch 1 patch topical DAILY back pain 08/11/23 #15 ea methocarbamol 750 mg tablet 750 mg PO QID back spasm 10 days 08/11/23 #40 tabs prednisone 20 mg tablet 40 mg (2 x 20 mg) PO DAILY 08/11/23 sciatica 5 days #10 tabs Allergies Allergy/AdvReac Type Severity Reaction Status Date / Time seasonal Allergy Agitation Uncoded 08/11/23 11:33 General Stated Complaint: Orthopedic MAINOR: 4 Review of Systems All systems reviewed & are unremarkable except as noted in HPI and below Exam Narrative Exam Narrative: GENERAL APPEARANCE: Well-nourished, non-toxic, awake and alert, atraumatic, no acute distress. SKIN: Warm, pink, dry, intact, without rashes/lesions/ulcerations. HEAD: Normocephalic, atraumatic, normal hair distribution for gender/age. EYES: Normal conjunctiva, no exudates on lids/lashes. ENT: Nares patent, no circumoral cyanosis, no facial swelling NECK: Supple, trachea midline, painless cervical ROM. LUNGS/CHEST: Non-labored respirations, normal A/P diameter, symmetrical expansion, no chest wall deformity HEART (CV/PV): No peripheral edema, no JVD. ABDOMEN: Soft, non-distended, no guarding. MSK: Normal ROM, no swelling/deformity to bilateral UEs or LEs, moving all extremities without weakness, no cyanosis, spine midline without tenderness, normal curvature. LOW BACK: Left paraspinal tenderness focal to the SI joint, traveling down the lateral left thigh consistent with sciatica, full range of motion, no ambulatory deficits, sensation and circulation intact distal, no midline vertebral tenderness/crepitus/step-offs, no saddle anesthesia NEURO: Mental Status AAOx4 - alert to person, place, time, events No facial droop, no forehead involvement. Motor: No focal weakness - strength 5/5 in bilateral UEs and LEs, proximal and distal, symmetric. Sensory: sensation intact to light touch globally. Gait normal: patient ambulated without ataxia into ED room. PSYCH: euthymic, cooperative, pleasant, appropriate speech Course Vital Signs Vital signs: Vital Signs Temperature 37.4 C 08/11/23 11:27 Pulse 84 08/11/23 11:27 Respiratory Rate 15 08/11/23 11:27 Blood Pressure 147/53 H 08/11/23 11:27 Pulse Oximetry 97 08/11/23 11:27 Temperature 37.4 C 08/11/23 11:27 Temperature Source Tympanic 08/11/23 11:27 Pulse 84 08/11/23 11:27 Respiratory Rate 15 08/11/23 11:27 Respiratory Effort Normal 08/11/23 11:31 Blood Pressure 147/53 H 08/11/23 11:27 Blood Pressure Position Sitting 08/11/23 11:27 Pulse Oximetry 97 08/11/23 11:27 Oxygen Delivery Method Room Air 08/11/23 11:27 Oxygen Flow Rate 0 08/11/23 11:27 Medical Decision Making This dictation utilizes [id number] dictation software and may contain unedited grammatical errors. 83 y/o M presents to ED today with a chief complaint of left paraspinal lumbar pain traveling down the L lateral thigh, worsening over days. Patient has a history of sciatica but never this bad- has no trauma, denies complete numbness, is ambulating into ED without issue, has tried OTC analgesics without relief, denies symptoms of cauda equina like saddle anesthesia, urinary retention, bowel incontinence. Patients' medical history: history of sciatica. Family and social history: Noncontributory. Pertinent exam findings / vital signs include LOW BACK: Left paraspinal tenderness focal to the SI joint, traveling down the lateral left thigh consistent with sciatica, full range of motion, no ambulatory deficits, sensation and circulation intact distal, no midline vertebral tenderness/crepitus/step-offs, no saddle anesthesia. Differential / pathologies of concern include Sciatica, Lumbar Back Spasm, Sacroilitis, not cauda equina, no risk factors for SEA. Diagnostic studies of: -none- discussed recommendations for outpatient imaging if no improvement after PT and medication trial. Interventions of: -Rx muscle relaxers, prednisone burst, voltaren, lidocaine patches, PT referral. ED Course/Assessment/Plan: 83-year-old male presents with classic findings for left-sided sciatica, no concerns for cauda equina or no risk factors for spinal epidural abscess. He has tried subtherapeutic regiments for pain relief, I did discuss the need for PT visits and consistent dosing of an aggressive regimen for sciatica for a w [place], recommend orthopedic follow-up for outpatient MRI if his symptoms are not improving. Strict return to ED criteria for any bowel or urinary changes, symmetrical numbness of the lower extremities, inability to ambulate. Findings not consistent with cauda equina, vertebral fracture, spinal epidural abscess. Disposition of sciatica of left side. Patient verbalized understanding of the plan and return to ED criteria and engaged in shared decision making. Medical Records Medical records reviewed: Yes I reviewed the patient's medical records. 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
[2023-08-11 12:20] VITALS: BP 147/53; PULSE 84; RESP 15; TEMP 37.4; O2SAT 97
== END 2023-08-11 12:25 | disposition home or self-care (01) ==
PROVIDERS: Emergency Provider Physician Assistant; PCP Family Medicine
DX: M54.32 Sciatica, left side (principal)
CPT/HCPCS: 99283

== ENCOUNTER 2023-08-19 10:53 | Outpatient (REF) | payer MEDICARE, OTHER, SELFPAY ==
[2023-08-19 16:27] LABS: Bilirubin Negative (Negative); Blood Trace-intact (Negative); Clarity Sl Cloudy (Clear); Glucose Negative (Negative); Ketones Negative (Negative); Leukocyte Esterase Moderate (Negative); Nitrite Negative (Negative); Specific Gravity 1.025 (1.005-1.025); Urobilinogen 0.2 mg/dL (Up to 0.2); pH 6.5 (5-8)
[2023-08-19 17:32] LABS: Epithelial Cells Rare HPF (Negative); RBC 0-2 HPF (0-2); WBC >50 HPF (0-5)
[2023-08-19 17:33] LABS: Bacteria Moderate HPF (Negative); C & S Indicated? Yes; Casts Negative LPF (Negative); Crystals Negative HPF (Negative); Mucus Negative (Negative); Other Cells Few Transitional (Negative)
== END 2023-08-19 10:54 | disposition home or self-care (01) ==
LOC: NCHCN 10:53
PROVIDERS: PCP Family Medicine; Visit Provider Family Medicine
DX: R35.0 Frequency of micturition (principal)
CPT/HCPCS: 87077; 81003; 81015; 87086; 87186

== ENCOUNTER 2023-08-31 16:24 | Outpatient (REF) | payer MEDICARE, OTHER, SELFPAY ==
[2023-08-31 15:03] LABS: Abs Immature Grans 0.01 10^3/uL (0.0-0.06); Absolute Basophil Count 0.05 10^3/uL (0.0-0.2); Absolute Eosinophil Count 0.12 10^3/uL (0.0-0.7); Absolute Lymphocyte Count 1.51 10^3/uL (1.2-3.4); Absolute Monocyte Count 0.68 10^3/uL (0.1-0.8); Absolute Neutrophil Count 3.53 10^3/uL (1.2-6.7); Basophils % 0.8 %; HCT 42.3 % (40.0-50.0); HGB 14.7 g/dL (13.5-17.5); Immature Grans % 0.2 %; Lymphocytes % 25.6 %; MCH 33.3 pg (27.0-33.0); MCHC 34.8 % (32.0-36.0); MCV 96 fL (80-95); Monocytes % 11.5 %; Neutrophils % 59.9 %; Platelet Count 191 10^3/uL (130-400); RBC 4.41 10^6/uL (4.36-5.78); RDW 13.1 % (11.8-14.1); RDW-SD 45.9 fL
[2023-08-31 15:12] LABS: Anion Gap 5.7 mmol/L (3-11); BUN 17 mg/dL (7-18); CO2 31.3 mmol/L (21.0-32.0); CREATININE 1.2 mg/dL (0.70-1.30); Calcium 9.1 mg/dL (8.5-10.1); Chloride 105 mmol/L (98-107); Estimated GFR 59.26 (mL/min/1.73m2); Glucose 75 mg/dL (74-106); Potassium 4.3 mmol/L (3.5-5.1); Sodium 142 mmol/L (136-145)
== END 2023-08-31 16:25 | disposition home or self-care (01) ==
LOC: NCHCN 16:24
PROVIDERS: PCP Family Medicine; Visit Provider Family Medicine
DX: K21.9 Gastro-esophageal reflux disease without esophagitis (principal)
CPT/HCPCS: 80048; 85025

== ENCOUNTER 2023-12-03 16:43 | Outpatient (REF) | payer MEDICARE, OTHER, SELFPAY ==
[2023-12-03 21:45] LABS: Abs Immature Grans 0.01 10^3/uL (0.0-0.06); Absolute Basophil Count 0.05 10^3/uL (0.0-0.2); Absolute Eosinophil Count 0.18 10^3/uL (0.0-0.7); Absolute Lymphocyte Count 1.49 10^3/uL (1.2-3.4); Absolute Monocyte Count 0.74 10^3/uL (0.1-0.8); Basophils % 0.7 %; Eosinophils % 2.7 %; HCT 41.5 % (40.0-50.0); HGB 14.4 g/dL (13.5-17.5); Immature Grans % 0.1 %; Lymphocytes % 22.3 %; MCH 32.9 pg (27.0-33.0); MCHC 34.7 % (32.0-36.0); MCV 95 fL (80-95); MPV 9.4 fL (8.0-11.0); Monocytes % 11.1 %; Neutrophils % 63.1 %; Platelet Count 225 10^3/uL (130-400); RBC 4.38 10^6/uL (4.36-5.78); RDW 12.6 % (11.8-14.1); RDW-SD 43.8 fL; WBC 6.67 10^3/uL (4.4-10.8)
[2023-12-03 22:14] LABS: ALT 31 U/L (16-63); AST 27 U/L (15-37); Alkaline Phosphatase 66 U/L (46-116); Anion Gap 9.1 mmol/L (3-11); BUN 20 mg/dL (7-18); Bilirubin, Total 0.67 mg/dL (0.2-1.0); CO2 28.9 mmol/L (21.0-32.0); CREATININE 1.2 mg/dL (0.70-1.30); Chloride 105 mmol/L (98-107); Estimated GFR 59.26 (mL/min/1.73m2); Glucose 92 mg/dL (74-106); Potassium 4.1 mmol/L (3.5-5.1); Sodium 143 mmol/L (136-145); TSH (W/Ref FT4) 1.74 uIU/mL (0.36-3.74); Total Protein 6.7 g/dL (6.4-8.2); Vitamin B12 1336 pg/mL (193-986)
== END 2023-12-03 16:44 | disposition home or self-care (01) ==
LOC: NCHCN 16:43
PROVIDERS: PCP Family Medicine; Visit Provider Family Medicine
DX: F03.90 Unspecified dementia, unspecified severity, without behavioral disturbance, psychotic disturbance, mood disturbance, and anxiety (principal)
CPT/HCPCS: 80053; 82607; 84443; 85025

== ENCOUNTER 2023-12-08 01:15 | Outpatient (CLI) | payer MEDICARE, OTHER, SELFPAY ==
--- NOTE | 2023-12-08 | DI.CT_ITS ---
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 TECHNIQUE: Imaging Protocol: Axial computed tomography images with coronal and sagittal reformatted images were created and reviewed COMPARISON: No exams were available for comparison FINDINGS: There are no skull fractures. There is no fluid in the visualized paranasal sinuses. There is no evidence of intracranial hemorrhage, mass effect, or shift of midline structures. There are no extra-axial fluid collections. The ventricles are not enlarged or shifted and there is no blo od within the ventricular system nor within the basal cisterns. The amount of involutional changes consistent with this patient's advanced age. IMPRESSION: No acute intracranial findings on this noninfused CT scan of the brain. RADIATION DOSE DELIVERED: 913.56mGy.cm Total DLP DATA REPOSITORY: All CT scans at this facility are submitted to the National Radiology Data Registry (NRDR) Dose Index Registry (DIR) with the [employer] (A[employer]). RADIATION OPTIMIZATION: All CT scans at this facility use at least one of these dose optimization te chniques: automated exposure control; mA and/or kV adjustment per patient size (includes targeted exa ms where dose is matched to clinical indication); or iterative reconstruction.
== END 2023-12-08 01:35 ==
LOC: DI 01:16
PROVIDERS: PCP Family Medicine; Visit Provider Family Medicine
DX: R05.9 Cough, unspecified (principal); F03.90 Unspecified dementia, unspecified severity, without behavioral disturbance, psychotic disturbance, mood disturbance, and anxiety
CPT/HCPCS: 70450

== ENCOUNTER 2023-12-08 07:57 | Emergency (ER) | payer MEDICARE, OTHER, SELFPAY ==
--- NOTE | 2023-12-08 08:00 | DI.RAD_ITS ---
Exam(s) XR CHEST 2V PA LATERAL EXAM: XR CHEST 2V PA LATERAL CLINICAL HISTORY: Cough. TECHNIQUE: 2D digital imaging was performed. COMPARISON: CR XR CHEST 2V PA LATERAL from 04/05/2021 FINDINGS: 2 views: Heart size is normal. The mediastinum is not widened. Lungs are clear. No infiltrates nor pleural effusions. IMPRESSION: No acute pulmonary findings. DATA REPOSITORY: RADIATION DOSE DELIVERED:
[2023-12-08 08:03] VITALS: BP 146/79; PULSE 74; RESP 16; TEMP 36.4; O2SAT 99
[2023-12-08 08:06] VITALS: BP 146/79; PULSE 72; RESP 16; TEMP 36.4; O2SAT 99
--- NOTE | 2023-12-08 08:44 | ED.GENADUL_ITS ---
Discharge Plan Disposition Patient Disposition: Home Condition: Stable Discharge Details Clinical Impression: COVID-19, Cough Primary Care Provider: Ryan Rivera ED Provider: Renate Delgado Home Meds and New Rx's Prescriptions: New benzonatate 100 mg capsule 100 mg PO BID-TID PRNQty: 10 0RF Paxlovid 300 mg (150 mg x 2)-100 mg tablets,dose pack See Rx Instructions .ROUTE .COMPLEX 5 Days Qty: 30 0RF Rx Instructions: take TWO 150 mg tablets of nirmatrelvir with ONE 100 mg tablet of ritonavir twice daily for 5 days No Action pantoprazole 40 mg tablet,delayed release (DR/EC) 40 mg PO DAILY pimecrolimus 1 % cream 1 applic topical BID ketoconazole 2 % cream 1 applic topical DAILY vitamin E (dl, acetate) 90 mg (200 unit) capsule 90 mg PO DAILY ascorbic acid (vitamin C) 1,000 mg capsule 1 g PO Q6H calcium carbonate 600 mg calcium (1,500 mg) tablet 600 mg PO DAILY cholecalciferol (vitamin D3) 25 mcg (1,000 unit) capsule 25 mcg PO DAILY vitamin B complex [B Complex-Vitamin B12] Tablet 1 tab PO DAILY multivitamin Tablet 1 tab PO DAILY fexofenadine 60 mg tablet 60 mg PO BID diclofenac sodium 1 % gel 2 g topical QID Qty: 100 0RF Rx Instructions: apply to single elbow, wrist or hand; for hand includes palm/fingers/back of hand Discharge Instructions Instructions: COVID-19 ED Additional Instructions: You were seen in the emergency department today for evaluation of cough and were found to be positive for COVID-19. In our department you had a full physical examination performed, and had an x-ray that did not show evidence of pneumonia. I have sent a prescription for Tessalon Perles, a medication that you can use as needed for cough, as well as a prescription for Paxlovid, medication that can reduce the severity of symptoms and the risk of hospitalization due to COVID-19 if taken within the first 5 days. Please follow-up with your primary care provider in the next few days to discuss this visit and any symptoms that change, worsen, or persist. Thank you for allowing us to be part of your care. HPI General Mode of arrival: ambulatory . Date/Time Provider Initiated Documentation: 12/08/23 07:59 . Limitations to Documentation: no limitations . Information obtained by: patient and old records reviewed . HPI Narrative: HPI: This is an 83-year-old male patient with a past medical history significant for GERD who is presenting for evaluation of 4 to 5 days of cough. The patient reports that his was sick with a upper respiratory infection last week, had a mild cough and has improved. The patient noticed that this cough is productive of clear sputum, has not noted any hemoptysis, has not had associated chest pain. He states that he initially felt that he was experiencing allergies, as he has a runny nose associated with this cough. Has not noted any fevers or chills, has been eating and drinking normally for him, and is otherwise in his normal state of health. The patient reports that he was present at the hospital already this morning getting a routine head CT for evaluation of some speech changes that have been occurring over the last several months. He states that the cough is bothersome as it occurs at night, and keeps him from sleeping. He has tried some [id number] supplements and remedies without successful management of his symptoms. The patient reports that he has approximately a [id number] smoking history, quit in 1967 and has been nicotine free since that time. He has no personal history of asthma or reactive airway disease, COPD, etc. The patient has no lower extremity swelling, no calf tenderness, no change in his ability to walk or exert himself. Exam: Gen: Awake and alert, in no apparent distress HEENT: Non-icteric sclera, conjunctiva not injected, full range of motion without meningismus Neck: Supple Lungs: No apparent respiratory distress, normal respiratory effort. Lung sounds are clear and equal bilaterally without wheezes, rhonchi, rales. An occasional dry sounding cough is appreciated during this provider's examination. CV: Appears well perfused, heart with regular rate and rhythm, no murmurs auscultated, strong and symmetrical distal pulses Abdomen: Non-distended MSK: Moves 4 extremities without apparent limitation in ROM, no unilateral calf swelling or tenderness Skin: Visualized skin without rashes, cyanosis. Neuro: Normal Gait, no obvious focal deficits or facial asymmetry. Speaks in full, clear sentences. Psych: Appropriate for situation. MDM: This is an 83-year-old male patient presenting for evaluation of 4 to 5 days of cough without associated symptoms. My differential includes but is not limited to viral upper respiratory infection, pneumonia, bronchitis, certainly considered seasonal allergies. The patient is reassuringly without chest pain to suggest ACS or other cardiac abnormalities. He does not have any lung findings concerning for pulmonary edema, pneumothorax, pleural effusion. He does not have DVT symptoms nor a history of thromboembolic disease to significantly increase my concern for pulmonary embolism. No hemoptysis, and the patient's remote nicotine use does not significantly increase my concern for malignancy. I am overall very reassured by this gentleman who is able to speak in full sentences, is oxygenating well and is otherwise hemodynamically appropriate. We will obtain a viral swab, a chest x-ray, and provide the patient with a dose of Tessalon Perles for symptomatic management. ED Course: I independently interpreted the chest x-ray which shows no abnormalities to account for symptoms and specifically negative for pneumonia or other infiltrative disease. The patient's viral swab is post positive for COVID-19, which was relayed to the patient. Given his age, and he does meet criteria for initiation of Paxlovid as he has had symptoms for less than 5 days, and does not take any medications which would interact with the Paxlovid. I also provided him with a prescription for Tessalon Perles to be used as needed for cough. We discussed masking and isolation, and follow-up with his primary care provider in the next few days to discuss any symptoms that change, worsen, or persist. At this time, the patient has had a full medical evaluation and is safe for discharge to home. They are hemodynamically stable, ambulatory, and tolerating PO. They are understanding of the follow-up plan and return precautions. They left our facility without incident. Renate Delgado MD Related Data Home Medications ?Medication ?Instructions ?Recorded ?Confirmed ascorbic acid (vitamin C) 1,000 mg 1 g PO Q6H 09/03/22 12/08/23 capsule calcium carbonate 600 mg PO DAILY 09/03/22 12/08/23 cholecalciferol (vitamin D3) 25 25 mcg PO DAILY 09/03/22 12/08/23 mcg (1,000 unit) capsule fexofenadine 60 mg tablet 60 mg PO BID 09/03/22 12/08/23 ketoconazole 2 % topical cream 1 applic topical DAILY 09/03/22 12/08/23 multivitamin 1 tab PO DAILY 09/03/22 12/08/23 pantoprazole 40 mg tablet,delayed 40 mg PO DAILY 09/03/22 12/08/23 release pimecrolimus 1 % topical cream 1 applic topical BID 09/03/22 12/08/23 vitamin B complex (B 1 tab PO DAILY 09/03/22 12/08/23 Complex-Vitamin B12 tablet) vitamin E (dl, acetate) 90 mg (200 90 mg PO DAILY 09/03/22 12/08/23 unit) capsule diclofenac sodium 1 % topical gel 2 g topical QID acute pain #100 08/11/23 12/08/23 grams benzonatate 100 mg capsule 100 mg PO BID-TID PRN #10 caps 12/08/23 nirmatrelvir 300 mg (150 mg See Rx Instructions PO .COMPLEX 5 12/08/23 x2)-ritonavir 100 mg tablet,dose days #30 dose pk pack (Paxlovid) Previous Rx's ?Medication ?Instructions ?Recorded diclofenac sodium 1 % topical gel 2 g topical QID acute pain #100 08/11/23 grams benzonatate 100 mg capsule 100 mg PO BID-TID PRN #10 caps 12/08/23 nirmatrelvir 300 mg (150 mg See Rx Instructions PO .COMPLEX 5 12/08/23 x2)-ritonavir 100 mg tablet,dose days #30 dose pk pack (Paxlovid) Allergies Allergy/AdvReac Type Severity Reaction Status Date / Time seasonal Allergy Agitation Uncoded 12/08/23 08:01 General Stated Complaint: RespSymp MAINOR: 3 Course Vital Signs Vital signs: Vital Signs Temperature 36.4 C L 12/08/23 08:03 Pulse 74 12/08/23 08:03 Respiratory Rate 16 12/08/23 08:03 Blood Pressure 146/79 H 12/08/23 08:03 Pulse Oximetry 99 12/08/23 08:03 Temperature 36.4 C L 12/08/23 08:06 Temperature Source Temporal Artery Scan 12/08/23 08:03 Pulse 72 12/08/23 08:06 Respiratory Rate 16 12/08/23 08:06 Respiratory Effort Normal, Non-Labored 12/08/23 08:10 Respiratory Depth Normal 12/08/23 08:10 Blood Pressure 146/79 H 12/08/23 08:06 Blood Pressure Position Sitting 12/08/23 08:06 Pulse Oximetry 99 12/08/23 08:06 Oxygen Delivery Method Room Air 12/08/23 08:06 Oxygen Flow Rate 0 12/08/23 08:03 Pain Level 8 12/08/23 08:06 Comment chronic neck pain 12/08/23 08:06 Medical Decision Making Quality:SDOH Health Related Social Needs: No Data to Display PFSH All Active Problems (Updated 12/08/23 @ 09:02 by Renate Delgado MD) Cough (Acute) COVID-19 (Acute) Left rotator cuff tear (Acute) GERD (gastroesophageal reflux disease) (Chronic) Medical History (Updated 12/08/23 @ 09:02 by Renate Delgado MD) Seborrheic dermatitis Seasonal allergies Psoriasis Ceruminosis Loss of smell Surgical History (Updated 01/21/23 @ 13:12 by Meli Prescott RN) 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
[2023-12-08] MEDS: Benzonatate 100 MG CAP PO (08:45)
[2023-12-08 08:57] LABS: Influenza A PCR Negative (Negative); Influenza B PCR Negative (Negative); RSV PCR Negative (Negative)
[2023-12-08 08:58] LABS: COVID-19 PCR Positive (Negative); Source Nasopharynx
[2023-12-08 09:36] VITALS: PULSE 67; RESP 16; TEMP 36.4; O2SAT 99
== END 2023-12-08 09:39 | disposition home or self-care (01) ==
PROVIDERS: Emergency Provider Emergency Medicine; PCP Family Medicine
DX: U07.1 COVID-19 (principal); R05.9 Cough, unspecified; Z87.891 Personal history of nicotine dependence
CPT/HCPCS: 87637; 99284; 70450; 71046; 99283

== ENCOUNTER 2024-03-06 10:48 | Emergency (ER) | payer MEDICARE, OTHER, SELFPAY ==
[2024-03-06 10:49] VITALS: BP 137/78; PULSE 86; RESP 14; TEMP 36.3; O2SAT 96
--- NOTE | 2024-03-06 10:53 | ED.GENADUL_ITS ---
Discharge Plan Disposition Patient Disposition: Home Discharge Details Clinical Impression: Acute UTI Primary Care Provider: Ryan Rivera ED Provider: Librado Mg Home Meds and New Rx's Prescriptions: New cefpodoxime 200 mg tablet 200 mg PO Q12H Qty: 20 0RF Rx Instructions: must administer with a meal/food cefpodoxime 200 mg tablet 200 mg PO Q12H Qty: 20 0RF Rx Instructions: must administer with a meal/food Continued pantoprazole 40 mg tablet,delayed release (DR/EC) 40 mg PO DAILY pimecrolimus 1 % cream 1 applic topical BID ketoconazole 2 % cream 1 applic topical DAILY vitamin E (dl, acetate) 90 mg (200 unit) capsule 90 mg PO DAILY ascorbic acid (vitamin C) 1,000 mg capsule 1 g PO Q6H calcium carbonate 600 mg calcium (1,500 mg) tablet 600 mg PO DAILY cholecalciferol (vitamin D3) 25 mcg (1,000 unit) capsule 25 mcg PO DAILY vitamin B complex [B Complex-Vitamin B12] Tablet 1 tab PO DAILY multivitamin Tablet 1 tab PO DAILY fexofenadine 60 mg tablet 60 mg PO BID diclofenac sodium 1 % gel 2 g topical QID Qty: 100 0RF Rx Instructions: apply to single elbow, wrist or hand; for hand includes palm/fingers/back of hand benzonatate 100 mg capsule 100 mg PO BID-TID PRNQty: 10 0RF amoxicillin 500 mg capsule Patient Comments: TK FOUR CS PO 1 HOUR B DAPP donepezil 5 mg tablet 5 mg PO DAILY Patient Comments: TAKE 1 TABLET BY MOUTH EVERY DAY Discharge Instructions Instructions: Urinary Tract Infection, Adult ED Additional Instructions: You were seen in emergency department for your burning while urinating. You are found to have a urinary tract infection. Please take these antibiotics as directed. Please return to the emergency department if you develop fevers nausea vomiting or cannot tolerate your antibiotics. Please follow-up with your primary care provider next week. Discharge Data Discharge Date/Time-TO BE ENTERED AT DEPARTURE: 03/06/24 12:09 HPI General Date/Time Provider Initiated Documentation: 03/06/24 10:53 . HPI Narrative: MDM This is an overall very well appearing afebrile and not tachycardic 83-year-old male with dysuria frequency concerning for the possibility of UTI. Patient is not sexually active and denies abnormal urethral discharge so I am not suspicious for sexually transmitted infection. No pain out of proportion to suggest Christopher's gangrene. No flank pain to suggest ureterolithiasis though patient does have history of nephrolithiasis. Patient has not been vomiting and as result my suspicion for any acute electrolyte abnormalities is low so I did not feel that the patient required assessment of his labs. I considered sepsis however the patient is quite well-appearing and his vitals are not consistent with SIRS criteria so I did not treat empirically with broad-spectrum antibiotics ordered blood cultures nor obtain a lactate. No rash to suggest cellulitis. No fluctuance to suggest abscess. Soft nontender abdomen so not suspicious for appendicitis. No diarrhea nor fevers to suggest diverticulitis. No rectal pain to suggest prostatitis and no fevers. Patient has not been vomiting to suggest small bowel obstruction. Will reassess following urinalysis. 11:55 AM Patient was found to have hematuria with leuk esterase concerning for UTI given symptoms. Will treat with 10 days of cefpodoxime. We discussed return indications including fevers vomiting and inability tolerate his antibiotics. I advised PCP follow-up in the next week for reassessment. HPI This is a circumcised 83-year-old male arrived to the emergency department via private vehicle in the setting of dysuria intermittently for the past several days. Patient notes that he has had remote history of ureterolithiasis but that his symptoms are not reminiscent of prior episodes of ureterolithiasis. Patient notes that sometimes during the evening his dysuria improved however he is also had urinary urgency. He denies testicular pain. He denies sexual activity. He denies abnormal urethral discharge. He denies penile pain. No fevers. No nausea vomiting abdominal pain chest pain or shortness of breath. Exam General: Well-appearing in no acute distress speaking in complete sentences. Head: Normocephalic, atraumatic. Eye: Extraocular eye movements intact. No conjunctival injection. No scleral icterus. Ear, nose, mouth, throat: Grossly normal inspection. Normal voice, handling secretions normally. Neck: Trachea midline. Cardiovascular: Well-perfused distal extremities. Respiratory: Nonlabored respiration. Gastrointestinal: Nondistended abdomen. Soft nontender. No obvious tenderness. : Circumcised penis. No testicular tenderness. No rash to scrotum. No pain out of proportion. No fluctuance. Musculoskeletal: No edema. Moving all 4 extremities spontaneously. Skin: Normal for age and race, grossly normal temperature and turgor. No acute rash. Neurologic: Alert and appropriate, no apparent acute deficits. Psychiatric: Mood and manner are appropriate. Grooming and personal hygiene are appropriate. Related Data Home Medications ?Medication ?Instructions ?Recorded ?Confirmed ascorbic acid (vitamin C) 1,000 mg 1 g PO Q6H 09/03/22 03/06/24 capsule calcium carbonate 600 mg PO DAILY 09/03/22 03/06/24 cholecalciferol (vitamin D3) 25 25 mcg PO DAILY 09/03/22 03/06/24 mcg (1,000 unit) capsule fexofenadine 60 mg tablet 60 mg PO BID 09/03/22 03/06/24 ketoconazole 2 % topical cream 1 applic topical DAILY 09/03/22 03/06/24 multivitamin 1 tab PO DAILY 09/03/22 03/06/24 pantoprazole 40 mg tablet,delayed 40 mg PO DAILY 09/03/22 03/06/24 release pimecrolimus 1 % topical cream 1 applic topical BID 09/03/22 03/06/24 vitamin B complex (B 1 tab PO DAILY 09/03/22 03/06/24 Complex-Vitamin B12 tablet) vitamin E (dl, acetate) 90 mg (200 90 mg PO DAILY 09/03/22 03/06/24 unit) capsule diclofenac sodium 1 % topical gel 2 g topical QID acute pain #100 08/11/23 03/06/24 grams benzonatate 100 mg capsule 100 mg PO BID-TID PRN #10 caps 12/08/23 03/06/24 amoxicillin 500 mg capsule mg 03/06/24 cefpodoxime 200 mg tablet 200 mg PO Q12H #20 tabs 03/06/24 cefpodoxime 200 mg tablet 200 mg PO Q12H #20 tabs 03/06/24 donepezil 5 mg tablet 5 mg PO DAILY 03/06/24 03/06/24 Previous Rx's ?Medication ?Instructions ?Recorded diclofenac sodium 1 % topical gel 2 g topical QID acute pain #100 08/11/23 grams benzonatate 100 mg capsule 100 mg PO BID-TID PRN #10 caps 12/08/23 cefpodoxime 200 mg tablet 200 mg PO Q12H #20 tabs 03/06/24 cefpodoxime 200 mg tablet 200 mg PO Q12H #20 tabs 03/06/24 Allergies Allergy/AdvReac Type Severity Reaction Status Date / Time seasonal Allergy Agitation Uncoded 03/06/24 10:55 General MAINOR: 3 Medical Decision Making Quality:SDOH Health Related Social Needs: No Data to Display PFSH All Active Problems (Updated 03/06/24 @ 11:42 by Librado Mg MD) Acute UTI (Acute) COVID-19 (Acute) Left rotator cuff tear (Acute) GERD (gastroesophageal reflux disease) (Chronic) Medical History (Updated 03/06/24 @ 11:42 by Librado Mg MD) Seborrheic dermatitis Seasonal allergies Psoriasis Ceruminosis Loss of smell Surgical History (Updated 01/21/23 @ 13:12 by Meli Prescott RN) 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
[2024-03-06 10:58] VITALS: BP 137/78; PULSE 86; RESP 14; TEMP 36.3; O2SAT 96
[2024-03-06 11:30] LABS: Bilirubin Negative (Negative); Blood Trace-intact (Negative); Clarity Cloudy (Clear); Glucose Negative (Negative); Ketones Negative (Negative); Leukocyte Esterase Moderate (Negative); Nitrite Negative (Negative); Specific Gravity 1.025 (1.005-1.025); Urobilinogen 0.2 mg/dL (Up to 0.2); pH 5.5 (5-8)
[2024-03-06 11:39] LABS: Bacteria Few HPF (Negative); C & S Indicated? Yes; Casts 0-2 Hyaline LPF (Negative); Crystals Negative HPF (Negative); Epithelial Cells Few HPF (Negative); Mucus Negative (Negative); RBC 0-2 HPF (0-2); WBC >50 HPF (0-5)
--- NOTE | 2024-03-08 11:09 | NUR.NOTE ---
accessed chart to get antibiotics for urine culture Nursing Note:
== END 2024-03-06 12:09 | disposition home or self-care (01) ==
LOC: ER 11:56
PROVIDERS: Emergency Provider Emergency Medicine; PCP Family Medicine
DX: R30.0 Dysuria (principal); N39.0 Urinary tract infection, site not specified
CPT/HCPCS: 87077; 99283; 81003; 81015; 87086; 87186

== ENCOUNTER 2024-05-10 12:33 | Emergency (ER) | payer MEDICARE, OTHER, SELFPAY ==
[2024-05-10 12:44] VITALS: BP 134/84; PULSE 84; RESP 14; TEMP 36.3; O2SAT 97
--- NOTE | 2024-05-10 13:59 | ED.GENADUL_ITS ---
Discharge Plan Disposition Patient Disposition: Home Condition: Stable Discharge Details Clinical Impression: Rhinitis Primary Care Provider: Ryan Rivera ED Provider: Wing Florian Home Meds and New Rx's Prescriptions: New mometasone 50 mcg/actuation spray,non-aerosol 2 spray intranasal DAILY PRNQty: 17 0RF Rx Instructions: administer into each nostril Continued pantoprazole 40 mg tablet,delayed release (DR/EC) 40 mg PO DAILY ketoconazole 2 % cream 1 applic topical DAILY vitamin E (dl, acetate) 90 mg (200 unit) capsule 90 mg PO DAILY ascorbic acid (vitamin C) 1,000 mg capsule 1 g PO Q6H calcium carbonate 600 mg calcium (1,500 mg) tablet 600 mg PO DAILY cholecalciferol (vitamin D3) 25 mcg (1,000 unit) capsule 25 mcg PO DAILY vitamin B complex [B Complex-Vitamin B12] Tablet 1 tab PO DAILY multivitamin Tablet 1 tab PO DAILY fexofenadine 60 mg tablet 60 mg PO BID diclofenac sodium 1 % gel 2 g topical QID Qty: 100 0RF Rx Instructions: apply to single elbow, wrist or hand; for hand includes palm/fingers/back of hand amoxicillin 500 mg capsule 2,000 mg PO .COMPLEX Patient Comments: TK FOUR CS PO 1 HOUR B DAPP Rx Instructions: 2,000 mg orally; one hour prior to dentist appt. donepezil 5 mg tablet 5 mg PO DAILY Patient Comments: TAKE 1 TABLET BY MOUTH EVERY DAY Discharge Instructions Instructions: Cough, runny nose, and the common cold, Seasonal Allergies ED Additional Instructions: You were seen in the emergency department for your rhinorrhea and rhinitis. I have sent you a prescription nasal spray to use as needed, please take an [id number] allergy medication like Claritin or Zyrtec once daily to. Please follow-up with a primary care referral to ENT should this problem continue despite treatment, please return to the emergency department for any severe emergencies like respiratory distress, chest pain, intractable nausea or vomiting, neurologic abnormality. Referrals: Ryan Rivera MD [Primary Care Provider] - Discharge Data Discharge Date/Time-TO BE ENTERED AT DEPARTURE: 05/10/24 14:15 HPI General Date/Time Provider Initiated Documentation: 05/10/24 12:55 . HPI Narrative: 83 year-old male presents to ED today by POV/ambulating with a chief complaint of runny nose with onset worse with the cold weather- endorses a URI about a month ago that has resolved. Quality described as just has severe runny nose- sometimes to where he had to hold a napkin in his nose to bowl with his friends, no radiation to fever, chills, shortness of breath, cough, green rhinorrhea, headache, chest pain. Severity is described as mild. Palliating factors include nothing specific attempted. Provoking factors include nothing specific. Patient not anticoagulated. Related Data Home Medications ?Medication ?Instructions ?Recorded ?Confirmed ascorbic acid (vitamin C) 1,000 mg 1 g PO Q6H 09/03/22 05/10/24 capsule calcium carbonate 600 mg PO DAILY 09/03/22 05/10/24 cholecalciferol (vitamin D3) 25 25 mcg PO DAILY 09/03/22 05/10/24 mcg (1,000 unit) capsule fexofenadine 60 mg tablet 60 mg PO BID 09/03/22 05/10/24 ketoconazole 2 % topical cream 1 applic topical DAILY 09/03/22 05/10/24 multivitamin 1 tab PO DAILY 09/03/22 05/10/24 pantoprazole 40 mg tablet,delayed 40 mg PO DAILY 09/03/22 05/10/24 release vitamin B complex (B 1 tab PO DAILY 09/03/22 05/10/24 Complex-Vitamin B12 tablet) vitamin E (dl, acetate) 90 mg (200 90 mg PO DAILY 09/03/22 05/10/24 unit) capsule diclofenac sodium 1 % topical gel 2 g topical QID acute pain #100 08/11/23 05/10/24 grams amoxicillin 500 mg capsule 2,000 mg PO .COMPLEX 03/06/24 05/10/24 donepezil 5 mg tablet 5 mg PO DAILY 03/06/24 05/10/24 mometasone 50 mcg/actuation nasal 2 spray intranasal DAILY PRN #17 05/10/24 spray grams Previous Rx's ?Medication ?Instructions ?Recorded diclofenac sodium 1 % topical gel 2 g topical QID acute pain #100 08/11/23 grams mometasone 50 mcg/actuation nasal 2 spray intranasal DAILY PRN #17 05/10/24 spray grams Allergies Allergy/AdvReac Type Severity Reaction Status Date / Time seasonal Allergy Agitation Uncoded 05/10/24 12:47 General Stated Complaint: RespSymp MAINOR: 4 Review of Systems All systems reviewed & are unremarkable except as noted in HPI and below Exam Narrative Exam Narrative: GENERAL APPEARANCE: Well-nourished, non-toxic, awake and alert, atraumatic, no acute distress. SKIN: Warm, pink, dry, intact, without rashes/lesions/ulcerations. HEAD: Normocephalic, atraumatic, normal hair distribution for gender/age. EYES: Normal conjunctiva, no exudates on lids/lashes. ENT: Nares patent, no circumoral cyanosis, no facial swelling, no active rh inorrhea, benign posterior oropharynx NECK: Supple, trachea midline, painless cervical ROM. LUNGS/CHEST: Lungs CTA bilaterally-no rhonchi/rales/wheezes diffusely, non- labored respirations, normal A/P diameter, symmetrical expansion, no chest wall deformity HEART (CV/PV): Regular rate and rhythm without murmur, no peripheral edema, no JVD. ABDOMEN: Soft, non-distended, no guarding. MSK: Normal ROM, no swelling/deformity to bilateral UEs or LEs, moving all extremities without weakness, no cyanosis, spine midline without tenderness, normal curvature. NEURO: Mental Status AAOx4 - alert to person, place, time, events No facial droop, no forehead involvement. Motor: No focal weakness - strength 5/5 in bilateral UEs and LEs, proximal and distal, symmetric. Sensory: sensation intact to light touch globally. Gait normal: patient ambulated without ataxia into ED room. PSYCH: euthymic, cooperative, pleasant, appropriate speech Course Vital Signs Vital signs: Vital Signs Temperature 36.3 C L 05/10/24 12:44 Pulse 84 05/10/24 12:44 Respiratory Rate 14 05/10/24 12:44 Blood Pressure 134/84 05/10/24 12:44 Pulse Oximetry 97 05/10/24 12:44 Temperature 36.3 C L 05/10/24 12:44 Temperature Source Oral 05/10/24 12:44 Pulse 84 05/10/24 12:44 Respiratory Rate 14 05/10/24 12:44 Respiratory Effort Normal, Non-Labored 05/10/24 12:51 Respiratory Depth Normal 05/10/24 12:51 Blood Pressure 134/84 05/10/24 12:44 Blood Pressure Position Sitting 05/10/24 12:44 Pulse Oximetry 97 05/10/24 12:44 Oxygen Delivery Method Room Air 05/10/24 12:44 Oxygen Flow Rate 0 05/10/24 12:44 Pain Level 0 05/10/24 12:44 Medical Decision Making This dictation utilizes [id number] dictation software and may contain unedited grammatical errors. 83 year-old male presents to ED today by POV/ambulating with a chief complaint of runny nose with onset worse with the cold weather- endorses a URI about a month ago that has resolved. Quality described as just has severe runny nose- sometimes to where he had to hold a napkin in his nose to bowl with his friends, no radiation to fever, chills, shortness of breath, cough, green rhinorrhea, headache, chest pain. Severity is described as mild. Palliating factors include nothing specific attempted. Provoking factors include nothing specific. Patients' medical history: Noncontributory. Family and social history: Noncontributory. Pertinent exam findings / vital signs include completely benign cardiopulmonary exam, no active rhinorrhea, benign posterior oropharynx. Differential / pathologies of concern include allergic rhinitis, not URI or respiratory distress. Diagnostic studies of: -None. Interventions of: -Rx for glucocorticoid intranasal spray. ED Course/Assessment/Plan: 83-year-old male presents for clear rhinorrhea, worse with cold weather exposure, likely allergic rhinitis, counseled on the need for an [id number] allergy pill like Claritin or Zyrtec and recommend he use prescription glucocorticoid intranasal spray as needed and follow-up with his regular provider, I stressed strict return criteria for emergent concerns. Findings not consistent with URI or respiratory distress. Disposition of Rhinitis. Patient verbalized understanding of the plan and return to ED criteria and engaged in shared decision making. Medical Records Medical records reviewed: Yes I reviewed the patient's medical records. 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
--- NOTE | 2024-05-16 05:44 | NUR.NOTE ---
Accessed patient chart to find patient pcp to send prior auth paperwork from his prefered pharmacy for medication.Nursing Note:
== END 2024-05-10 14:15 | disposition home or self-care (01) ==
PROVIDERS: Emergency Provider Physician Assistant; PCP Family Medicine
DX: J31.0 Chronic rhinitis (principal)
CPT/HCPCS: 99283

== ENCOUNTER 2024-08-31 12:14 | Outpatient (REF) | payer MEDICARE, OTHER, SELFPAY ==
--- NOTE | 2024-08-31 10:00 | SKI_PTH ---
PATIENT: Bowen Munguia LOC: [facility] U#:[id number] AGE/SX: 84/M ROOM: RE08/31/[address]: Ryan Rivera : 1940 BED: DIS: 08/31/2024 SPEC #: [id number] RECD: 08/31/24 17:28 STATUS: [facility] ORNELAS #: [id number] [place]: 08/31/24 10:[address]: Ryan Rivera DEPT: Surgical Specimen RECD BY: Brigitte Schuster Tissues: 1 - SKIN BIOPSY(SHAVE/PUNCH) Procedures: SKIN LEVEL 4 Comments: [id number]
== END 2024-08-31 12:15 | disposition home or self-care (01) ==
LOC: NCHCN 12:14
PROVIDERS: PCP Family Medicine; Visit Provider Family Medicine
DX: L73.9 Follicular disorder, unspecified (principal)
CPT/HCPCS: 88305